=== PATIENT | male | born 1950 | race Caucasian/White ===

== ENCOUNTER 2020-10-07 22:13 | Emergency (ER) | payer MEDICARE, SELFPAY ==
[2020-10-07 22:18] VITALS: BP 133/110; PULSE 99; RESP 18; TEMP 36.6; O2SAT 99
[2020-10-08] MEDS: KETOROLAC 30 MG/ML VIAL (*BKC) IV PUSH (00:02)
[2020-10-08] MEDS: SODIUM CHLORIDE 0.9% IV 1,000 ML 999 ML IV CONT (00:02)
[2020-10-08] MEDS: diazePAM INJ (*CRX) 10 MG/2 ML SYRINGE 5 MG IV PUSH (00:03)
[2020-10-08 00:10] VITALS: BP 132/80; PULSE 67; RESP 16; O2SAT 95
[2020-10-08 00:31] LABS: Anion Gap 8 mmol/L (8-16); Blood Urea Nitrogen 18 mg/dL (9-20); Calcium 9.4 mg/dL (8.4-10.2); Carbon Dioxide 25 mmol/L (22-30); Chloride 103 mmol/L (98-107); Estimated Glomerular Filt Rate > 60; Glucose 129 mg/dL (75-110); Magnesium 2.1 mg/dL (1.6-2.3); Sodium 136 mmol/L (137-145)
[2020-10-08 01:00] VITALS: BP 129/80; PULSE 64; RESP 16; O2SAT 98
--- NOTE | 2020-10-08 01:48 | ED.GENADULT ---
HPI - General Adult General Chief complaint: Extremity Problem,Nontraumatic Stated complaint: Lower leg pain-no injury Time Seen by Provider: 10/07/20 23:07 History of Present Illness HPI narrative: Patient is a 70-year-old male who presents ER with left calf pain. Patient was ambulating when he started having sudden pain in his left calf. Lateral aspect proximally. No chest pain shortness of breath. No lower extremity swelling or redness. No previous blood clots. Pain is worse when he attempts to stretch the calf. Reports it feels like a charley horse but worse. Related Data Allergies Allergy/AdvReac Type Severity Reaction Status Date / Time No Known Allergies Allergy Verified 10/07/20 22:13 Review of Systems Review of Systems: All systems reviewed & are unremarkable except as noted in HPI and below Constitutional: Constitutional: Denies chills and Denies fever(s) Cardiovascular: Cardiovascular: Denies chest pain Respiratory: Respiratory: Denies cough and Denies dyspnea Musculoskeletal: Musculoskeletal: Denies arthralgias, Denies joint swelling and Reports muscle cramps PMFSH Past Medical History Medical History (Updated 10/08/20 @ 06:51 by Neil Sears MD) BPH loc w/o ur obs/LUTS Essential (primary) hypertension Gastro-esophageal reflux disease without esophagitis Pure hypercholesterolemia, unspecified Surgical History Surgical History (Updated 10/08/20 @ 06:51 by Neil Sears MD) No pertinent past surgical history Family History Family History Sibling Family history of coronary artery disease Patient's sister is Patient's brother is Patient's sister is in good health Patient's brother is in good health Mother Patient's mother is Father Patient's father is Other Family history of cardiovascular disease Family history of malignant neoplasm Hypertension Social History Social History Smoking status: Never smoker Second hand tobacco smoke exposure: No Alcohol intake: never Exam Narrative: Exam Narrative: GENERAL: Well-appearing, well-nourished, and in no acute distress. HEAD: Normocephalic, atraumatic. CHEST: Clear to auscultation. No respiratory distress. HEART: Regular rate and rhythm. Normal peripheral pulses.. EXTREMITIES: Normal range of motion. No edema. Tender palpation over left calf proximally more lateral aspect. Consistent with spasm. SKIN: Warm, dry, no rash. NEURO:Alert and oriented x3. PSYCH: Normal mood and affect. Course Course Emergency Course: Pain and symptoms seem consistent with muscle spasm/strain. Discharged with anti-inflammatories and antispasmodics as that has helped the patient while in the ER. Vital Signs Vital signs: Vital Signs Temperature 97.9 F 10/07/20 22:18 Pulse Rate 99 10/07/20 22:18 Respiratory Rate 18 10/07/20 22:18 Blood Pressure 133/110 H 10/07/20 22:18 Pulse Oximetry 99 10/07/20 22:18 Temperature 97.9 F 10/07/20 22:18 Pulse Rate 68 10/08/20 02:00 Respiratory Rate 16 10/08/20 02:00 Blood Pressure 138/77 10/08/20 02:00 Pulse Oximetry 97 10/08/20 02:00 Medical Decision Making Vital Signs Vital Signs: Vital Signs Temperature 97.9 F 10/07/20 22:18 Pulse Rate 99 10/07/20 22:18 Respiratory Rate 18 10/07/20 22:18 Blood Pressure 133/110 H 10/07/20 22:18 Pulse Oximetry 99 10/07/20 22:18 Temperature 97.9 F 10/07/20 22:18 Pulse Rate 68 10/08/20 02:00 Respiratory Rate 16 10/08/20 02:00 Blood Pressure 138/77 10/08/20 02:00 Pulse Oximetry 97 10/08/20 02:00 Lab Data Result diagrams: 10/08/20 00:06 Labs: Lab Results 10/08/20 Range/Units 00:06 Sodium 136 L (137-145) mmol/L Potassium 4.0 (3.4-5.0) mmol/L Chloride 103 (98-107) mmol/L Carbon Magan
[2020-10-08 02:00] VITALS: BP 138/77; PULSE 68; RESP 16; O2SAT 97
== END 2020-10-08 02:30 | disposition home or self-care (01) ==
PROVIDERS: Emergency Provider Emergency Medicine; PCP Internal Medicine
DX: R25.2 Cramp and spasm (principal); I10 Essential (primary) hypertension; K21.9 Gastro-esophageal reflux disease without esophagitis; E78.5 Hyperlipidemia, unspecified
CPT/HCPCS: 36415; 80048; 83735; 96361; 96374; 96375; 99284; J1885; J3360; J7030

== ENCOUNTER 2020-10-25 12:23 | Emergency (ER) | payer MEDICARE, SELFPAY ==
--- NOTE | ~2020-10-25 | XR_ITS ---
EXAMINATION: XR knee LT 3V EXAM DATE: 10/25/2020 15:53 INDICATION: Swelling, pain knee, left knee medial pain. No known recent injury. TECHNIQUE: Frontal, oblique, lateral projections of the left knee. There is no prior study for malena heller. FINDINGS: No evidence osteochondral defect or joint body in the left knee joint. There are no acute fractures or dislocations identified. There is no subcutaneous gas. The soft tissue is unremarkabl e. There are no radiopaque foreign bodies. IMPRESSION: 1. Unremarkable XR knee LT 3V exam. Reviewed, dictated and finalized at location B.
--- NOTE | ~2020-10-25 | US_ITS ---
EXAMINATION: US venous doppler [facility] DATE: 10/25/2020 13:24 INDICATION: Left lower limb swelling. TECHNIQUE: Grayscale ultrasound images without and with compression and Doppler ultrasound images of the left lower extremity veins were obtained. COMPARISON: None. FINDINGS: The visualized portions of left common femoral vein, profunda (deep) femoral vein, femoral vein, popl iteal vein, peroneal veins, posterior tibial veins, and greater saphenous vein outflow are patent. IMPRESSION: 1. No deep venous thrombosis. Reviewed, dictated and finalized at location A.
[2020-10-25 12:55] VITALS: BP 144/78; PULSE 78; RESP 18; TEMP 37.1; O2SAT 98
[2020-10-25 14:32] VITALS: BP 164/95; PULSE 78; RESP 18; O2SAT 98
[2020-10-25] MEDS: KETOROLAC (*BKC) 60 MG/2 ML VIAL IM (15:57)
--- NOTE | 2020-10-25 16:08 | ED.EXTPRO ---
HPI - Extremity Problem General Chief complaint: Extremity Problem,Nontraumatic Stated complaint: L Leg Swelling Time Seen by Provider: 10/25/20 14:35 Source: patient Mode of arrival: ambulatory Limitations: no limitations History of Present Illness HPI Narrative: Patient is a 70-year-old male who presents reporting right knee pain. Patient was sent to rule out DVT. Ultrasound is negative for DVT. Patient reports increased edema and tenderness with ambulation over the past week. Patient reports initial pain started approximately 2 weeks ago. He denies known injury. He denies all other complaints at this time. Patient is not on anticoagulants. MD Complaint: extremity pain, extremity swelling and joint paint Related Data Allergies Allergy/AdvReac Type Severity Reaction Status Date / Time No Known Allergies Allergy Verified 10/25/20 14:32 Review of Systems Review of Systems: Narrative: CONSTITUTIONAL: Denies fever, chills, or sweats. EYES: Denies visual changes, redness, or discharge. ENT: Denies rhinorrhea, congestion, sore throat, or otalgia. CARDIOVASCULAR: Denies chest pain, palpitations, or edema. RESPIRATORY: Denies cough or dyspnea. GASTROINTESTINAL: Denies abdominal pain, nausea, vomiting, or diarrhea. GENITOURINARY: Denies dysuria or hematuria. SKIN: Denies rash or itching. MUSCULOSKELETAL: Reports left knee pain NEUROLOGIC: Denies headache, numbness, dizziness, or weakness. PSYCHIATRIC: Denies anxiety or depression. [facility] Past Medical History Medical History BPH loc w/o ur obs/LUTS Essential (primary) hypertension Gastro-esophageal reflux disease without esophagitis Pure hypercholesterolemia, unspecified Surgical History Surgical History No pertinent past surgical history Family History Family History Sibling Family history of coronary artery disease Patient's sister is Patient's brother is Patient's sister is in good health Patient's brother is in good health Mother Patient's mother is Father Patient's father is Other Family history of cardiovascular disease Family history of malignant neoplasm Hypertension Social History Social History Smoking status: Never smoker Second hand tobacco smoke exposure: No Alcohol intake: never Comments At the time of signature, I have reviewed and agree with nursing past medical, surgical, social, and family history unless otherwise noted. Please see nursing chart for further information. There is no relevant family history pertinent to the presenting complaint. Exam Narrative: Exam Narrative: GENERAL: Well-appearing, well-nourished, and in no acute distress. HEAD: Normocephalic, atraumatic. EYES: EOMI. No redness or drainage. Conjunctiva are normal. ENT: Mucous membranes pink and moist. CHEST: No respiratory distress. Clear to auscultation. HEART: Regular rate and rhythm. No murmur appreciated. Normal peripheral pulses. GI: Soft, nontender without rebound, or guarding. EXTREMITIES: Edema noted to right anterior knee, tenderness with palpation, distal sensation intact, good capillary refill SKIN: Warm, dry, no rash. NEURO: No focal deficits. Alert and oriented x3. Gait steady. PSYCH: Normal affect. No signs of depression or anxiety. Course Vital Signs Vital signs: Vital Signs Temperature 37.1 C 10/25/20 12:55 Pulse Rate 78 10/25/20 12:55 Respiratory Rate 18 10/25/20 12:55 Blood Pressure 144/78 H 10/25/20 12:55 Pulse Oximetry 98 10/25/20 12:55 Temperature 37.1 C 10/25/20 12:55 Pulse Rate 78 10/25/20 14:32 Respiratory Rate 18 10/25/20 14:32 Blood Pressure 164/95 H 10/25/20 14:32 Pulse Oximetry 98 10/25/20 14:32 Reviewed.
[2020-10-25 17:50] LABS: Uric Acid 5.3 mg/dL (3.5-8.5)
--- NOTE | 2020-10-25 18:00 | PC.NURSE ---
Patient reports having raffy wrap at home that he will apply once he is home with his leg elevated.
== END 2020-10-25 18:11 | disposition home or self-care (01) ==
PROVIDERS: Emergency Provider Nurse Practitioner; PCP Internal Medicine
DX: M25.562 Pain in left knee (principal); N40.0 Benign prostatic hyperplasia without lower urinary tract symptoms; I10 Essential (primary) hypertension; K21.9 Gastro-esophageal reflux disease without esophagitis; E78.00 Pure hypercholesterolemia, unspecified; M79.89 Other specified soft tissue disorders
CPT/HCPCS: 36415; 73562; 84550; 93971; 96372; 99284; J1885

== ENCOUNTER → 2021-01-21 00:40 | Outpatient (CLI) | payer MEDICARE, SELFPAY ==
[2021-01-21 19:34] LABS: SARS-CoV-2 RNA PCR Negative
== END ==
PROVIDERS: PCP Internal Medicine; Visit Provider Internal Medicine
DX: R68.89 Other general symptoms and signs (principal); Z20.822 Contact with and (suspected) exposure to COVID-19
CPT/HCPCS: C9803; U0003; U0005

== ENCOUNTER 2021-07-04 10:44 | Outpatient (CLI) | payer MEDICARE, SELFPAY ==
[2021-07-04 12:09] LABS: Add Urine Microscopic? YES; Appearance Urine Cloudy (Clear); Bacteria Urine 1+ /hpf; Bilirubin Urine Negative (Negative); Blood Urine 2+ (Negative); Color Urine Amber (Yellow); Glucose Urine UA Negative (Negative); Ketones Urine Negative (Negative); Leukocyte Esterase Ur 3+ LEU/UL (Negative); Mucus Urine Few /lpf; Nitrate Urine Negative (Negative); Protein Urine 2+ mg/dL (Negative); Squamous Epithelial Cell Urine Few /hpf (Few); WBC Clumps Urine Present /HPF; WBC Urine >75 /hpf
== END 2021-07-04 10:45 | disposition home or self-care (01) ==
LOC: ANHLAB 10:47
PROVIDERS: PCP Internal Medicine; Visit Provider Internal Medicine
DX: R30.0 Dysuria (principal)
CPT/HCPCS: 81001; 87077; 87086; 87186